=== PATIENT | female | born 1950 | race Caucasian/White ===

== ENCOUNTER 2025-03-11 09:42 | Outpatient (CLI) | payer MEDICARE | END 2025-03-11 09:43 | disposition home or self-care (01) | LOC: CSHMAMMO 09:42 | PROVIDERS: ATTEND Obstetrics & Gynecology | DX: R92.8 Other abnormal and inconclusive findings on diagnostic imaging of breast (principal); N63.15 Unspecified lump in the right breast, overlapping quadrants; N63.12 Unspecified lump in the right breast, upper inner quadrant ==